=== PATIENT | male | born 1955 | race Caucasian/White ===

== ENCOUNTER 2019-07-05 11:42 | Emergency (ER) | payer MEDICARE, MEDICAID, SELFPAY ==
[2019-07-05] VITALS (7 sets, daily range): BP systolic 145–189; BP diastolic 60–93; PULSE 90–101; RESP 12–20; TEMP 36.5; O2SAT 89–96; BMI 39.9
--- NOTE | 2019-07-05 11:51 | DI.CT.S_ITS ---
PROCEDURE: CT HEAD/BRAIN WO CON INDICATIONS: multiple seizures TECHNIQUE: Noncontrast 4.5 mm thick angled axial sections acquired from the foramen magnum to the vertex, with coronal and sagittal reformats. For radiation dose reduction, the following was used: automated exposure control, adjustment of mA and/or kV according to patient size. COMPARISON: [facility], CT, CT HEAD WITHOUT CONTRAST, 08/29/2017, 11:48. FINDINGS: Image quality: Excellent. CSF spaces: Basal cisterns are patent. No extra-axial fluid collections. Ventricles are normal in size and shape. Brain: No midline shift. No intracranial masses or hemorrhage. Christina-white matter interface is normal. Skull and face: Calvarium and visualized facial bones are intact, without suspicious lesions. Sinuses: Visualized sinuses and mastoids are clear. IMPRESSION: Normal for age, source of seizure activity is not seen. No trauma from seizure is found. Dictated by: Guillermo Wright M.D. on 07/05/2019 at 12:29 Approved by: Guillermo Wright M.D. on 07/05/2019 at 12:31
--- NOTE | 2019-07-05 11:53 | DI.RAD.S_ITS ---
PROCEDURE: XR CHEST 1V INDICATIONS: hypoxic TECHNIQUE: One view of the chest was acquired. COMPARISON: [facility], CR, XR CHEST 1 VIEW, 07/03/2018, 9:48. FINDINGS: Surgical changes and devices: None. Lungs and pleura: Lungs are abnormal with a mild pulmonary edema pattern. No pleural effusions or pneumothorax. Mediastinum: Mediastinal contours appear normal. Heart size is at the upper limits of normal. Bones and chest wall: No suspicious bony lesions. Overlying soft tissues appear unremarkable. IMPRESSION: Mild generalized pulmonary edema pattern, heart size without change, at the upper limits of normal. Focal consolidative pneumonia is not seen. Dictated by: Guillermo Wright M.D. on 07/05/2019 at 12:21 Approved by: Guillermo Wright M.D. on 07/05/2019 at 12:22
[2019-07-05 12:02] LABS: Add Manual Diff / Slide Review NO; Basophils Absolute Auto 100 /uL (0-100); Basophils Percent Auto 0.6 % (0-2); Eosinophils Absolute Auto 100 /uL (0-450); Eosinophils Percent Auto 1.1 % (2-4); Hematocrit 52.4 % (41-53); Hemoglobin 17.6 g/dL (13.5-17.5); Lymphocytes Absolute Auto 1000 /uL (1100-4500); Lymphocytes Percent Auto 7.8 % (25-40); Mean Corpuscular HGB Conc 33.5 % (30-36); Mean Corpuscular Hemoglobin 28.9 PG (26-34); Mean Corpuscular Volume 86.2 fL (80-100); Monocytes Absolute Auto 900 /uL (0-900); Monocytes Percent Auto 7.1 % (3-14); Neutrophils Absolute Auto 10500 /uL (1500-7000); Neutrophils Percent Auto 83.4 % (50-75); Platelet Count 214 X10^3/uL (150-400); Red Blood Cell Count 6.08 X10^6/uL (4.5-5.9); Red Cell Distribution Width 15.6 % (11.6-14.8); White Blood Cell Count 12.5 X10^3/uL (4.5-11.0)
--- NOTE | 2019-07-05 12:10 | ED_ITS ---
HPI - Seizure <FEROZ Best - Last Filed: 07/05/19 18:48> General Chief Complaint: Seizure Stated Complaint: Seizures Time Seen by Provider: 07/05/19 11:46 Source: patient Mode of arrival: EMS History of Present Illness HPI Narrative: The patient is a 64-year-old male current smoker with history of seizures and cardiac disease who presents by EMS for chief complaint of a seizure. He states he has had approximately 3-4 seizures today. Does have a history of seizures most recently 4-5 months ago. He states he used to be on medications for seizures, not sure which 1 but no longer takes any medications. He does complain of a slight headache. He denies any neck pain or back pain. Per EMS he was incontinent after his seizure episode. He has declined transport for the 1st 2 seizures today that they recalled 4, but then he was postictal, so he received transport to the hospital. Upon arrival he is alert oriented x3. He does complain of a slight headache. 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 Related Data Allergies Allergy/AdvReac Type Severity Reaction Status Date / Time Penicillins Allergy Verified 07/05/19 11:51 Review of Systems <FEROZ Best - Last Filed: 07/05/19 18:48> Review of Systems Narrative: GENERAL: Denies chills, fatigue, malaise, fever, sweats. HEENT: Denies sinus pain, ear pain, sore throat, difficulty swallowing, dizziness. RESPIRATORY: Denies dyspnea, cough, wheezing, hemoptysis, sputum. CARDIOVASCULAR: Denies chest pain, palpitations, orthopnea, edema, GASTROINTESTINAL: Denies nausea, vomiting, abdominal pain, diarrhea, constipation, melena. : Denies dysuria, frequency, incontinence, hematuria, urinary retention. MUSCULOSKELETAL: denies weakness, joint pain, or bony pain SKIN: Denies rash, skin lesions, or other NEUROLOGIC: See HPI PSYCHIATRIC: No concerning psychosocial issues. 12 point review of systems is negative except for those stated above Patient History <FEROZ Best - Last Filed: 07/05/19 18:48> Medical History (Updated 07/05/19 @ 18:46 by FEROZ Bets) Cardiac disease (Acute) History of seizure (Acute) Leg wound, left (Acute) Social History Smoking Status: Current every day smoker Smoking Status: Current every day smoker tobacco type: cigarettes Substance Use Type: former substance user Exam <FEROZ Best - Last Filed: 07/05/19 18:48> Narrative Exam Narrative: GENERAL: Elderly unkempt male in no acute distress HEAD: Atraumatic. Normocephalic. No temporal or scalp tenderness. EYES: Pupils equal round and reactive. Extraocular motions intact. No scleral icterus. No injection or drainage. ENT: Nose without bleeding, purulent drainage or septal hematoma. Throat without erythema, tonsillar hypertrophy or exudate. Uvula midline. Airway patent. NECK: Trachea midline. No JVD or lymphadenopathy. Supple, nontender, no meningeal signs. CARDIOVASCULAR: Regular rate and rhythm RESPIRATORY: Clear to auscultation. Breath sounds equal bilaterally. No wheezes, rales, or rhonchi. GASTROINTESTINAL: Abdomen soft, non-tender, nondistended. No hepato- splenomegaly, or palpable masses. No guarding. EXTREMITIES: No clubbing, cyanosis, or edema. No joint tenderness, effusion, or edema noted. BACK: Nontender without deformity or crepitance. No flank tenderness. NEURO: AOx3. Following commands. States he is at [facility], year is 2019 full name. Slightly slurred speech. SKIN: Lower bilateral leg wounds noted with no no drainage or surrounding erythema Initial Vital Signs Initial Vital Signs: Vital Signs Temperature 97.7 F 07/05/19 11:46 Pulse Rate 92 H 07/05/19 11:46 Respiratory Rate 12 07/05/19 11:46 Blood Pressure 189/85 H 07/05/19 11:46 Pulse Oximetry 89 L 07/05/19 11:46 <Hector Honeycutt DO - Last Filed: 07/05/19 19:00> Initial Vital Signs Initial Vital Signs: Vital Signs Temperature 97.7 F 07/05/19 11:46 Pulse Rate 92 H 07/05/19 11:46 Respiratory Rate 12 07/05/19 11:46 Blood Pressure 189/85 H 07/05/19 11:46 Pulse Oximetry 89 L 07/05/19 11:46 Scores <FEROZ Best - Last Filed: 07/05/19 18:48> GCS Sanket coma scale eye opening: Spontaneous [place] coma scale verbal response: Orientated [place] coma scale motor response: Obey commands [place] coma scale total score: 15 Course <ENRRIQUE BestP-BC - Last Filed: 07/05/19 18:48> Orders Ordered: ED Orders 07/05/19 11:00 Complete Blood Count AUTO DIFF Stat 07/05/19 11:51 CT head/brain wo con Stat EKG-12 Lead Stat 07/05/19 11:53 XR chest 1V Stat 07/05/19 12:35 Comprehensive Metabolic Panel Stat Ethanol (ETOH) Stat Magnesium Stat Phosphorous Stat Prolactin Stat 07/05/19 14:22 UA dip and micro [Urinalysis and Microscopic] Stat 07/05/19 14:31 Urine Drug Screen, Rapid Stat Discontinued Medications Sodium Chloride (Normal Saline 0.9%) 1,000 mls @ 1,000 mls/hr IV BOLUS ONE Stop: 07/05/19 12:49 Last Infusion: 07/05/19 15:03 Dose: 0 mls/hr Documented by: Admin: 07/05/19 12:39 Dose: 1,000 mls/hr Documented by: MARIETTA Levetiracetam 1,000 mg/ Sodium (Chloride) 110 mls @ 440 mls/hr IV NOW ONE Stop: 07/05/19 12:29 Last Infusion: 07/05/19 13:20 Dose: 0 mls/hr Documented by: Admin: 07/05/19 12:54 Dose: 440 mls/hr Documented by: MARIETTA Lorazepam (Ativan) 2 mg IM NOW ONE Stop: 07/05/19 12:30 Last Admin: 07/05/19 12:41 Dose: 2 mg Documented by: MARIETTA Lorazepam (Ativan) 2 mg IV NOW ONE Stop: 07/05/19 12:42 Last Admin: 07/05/19 12:47 Dose: 2 mg Documented by: MARIETTA Reevaluation(s) Reevaluation #1: Ultrasound [employer] and at bedside for patient patient started having a grand mal seizure that lasted for 3 minutes. Myself and Dr. Honeycutt in to see the patient given IM Ativan, IV secured patient given further Ativan. NPA in place. He was moving all 4 extremities after his seizure. Patient was initially combative, pulling at IV lines so he was placed in soft restraints with [id number] assessment documented accordingly. Time: 12:18 Consultations Consultation #1: I spoke to Dr Muñiz from [facility] neurology, who states that the patient needs to be admitted for observation, he would not benefit from an EEG or necessarily being transferred to a hospital with Neurology at this point time. She states that she would not send the patient home given that he has had multiple seizures today, but he would not benefit from an EEG as those are better for subclinical seizure activity. Time: 13:55 Consultation #2: I spoke with Dr. smith our hospitalist who states that the patient would be better served at a location with neurology increase he deteriorates Time: 15:00 Consultation #3: I spoke with Eunice MATTHEWS who states that she is happy to accept the patient as hospitalist at [facility]. The patient remains sedated. He did give verbal consent to for me to speak with his father with Deric BENNETT at the bedside. He did not give consent for me to speak with his Yvonne, with Deric BENNETT at the bedside. I attempted to discuss impending patient transferred to [facility], but the patient was too sleepy and altered. Remains moving all 4 extremities. Time: 16:45 Vital Signs Vital signs: Vital Signs - 8 hr 07/05/19 11:46 07/05/19 12:45 07/05/19 13:00 Temperature 97.7 F Pulse Rate 92 H 101 H 96 H Respiratory Rate 12 15 19 Blood Pressure 189/85 H Blood Pressure [Left Arm] 174/93 H 160/86 H Pulse Oximetry 89 L 93 93 07/05/19 15:00 07/05/19 16:30 07/05/19 17:30 Temperature Pulse Rate 91 H 91 H 90 Respiratory Rate 16 20 17 Blood Pressure Blood Pressure [Left Arm] 147/60 H 145/84 H 156/77 H Pulse Oximetry 96 94 94 07/05/19 18:05 Temperature Pulse Rate 90 Respiratory Rate 17 Blood Pressure Blood Pressure [Left Arm] 155/92 H Pulse Oximetry 93 Restraint [id number] evaluation Date: 07/05/19 Time: 12:45 Mental Status Exam Patient Appearance: Unkempt Level of Consciousness: Combative and Disoriented Speech Pattern: Mumbled Mood Description: Angry Ability to Follow Directions: Poor Thought Process:: Other (Postictal) Physical Status Respirations: Normal respiratory rate Cardiac: Regular Rate Circulation: Moves all extremities Assessment of Situation Behavior necessitating restraint: Agitated (Also confused, pulling at lines,) Other risks: Agitated, confused, postictal, pulling at lines Restraint risks explained to patient: No (Patient is postictal confused, combative) Restraint risks explained to family: No (No family at bedside) <Hector Honeycutt DO - Last Filed: 07/05/19 19:00> Orders Ordered: ED Orders 07/05/19 11:00 Complete Blood Count AUTO DIFF Stat 07/05/19 11:51 CT head/brain wo con Stat EKG-12 Lead Stat 07/05/19 11:53 XR chest 1V Stat 07/05/19 12:35 Comprehensive Metabolic Panel Stat Ethanol (ETOH) Stat Magnesium Stat Phosphorous Stat Prolactin Stat 07/05/19 14:22 UA dip and micro [Urinalysis and Microscopic] Stat 07/05/19 14:31 Urine Drug Screen, Rapid Stat Discontinued Medications Sodium Chloride (Normal Saline 0.9%) 1,000 mls @ 1,000 mls/hr IV BOLUS ONE Stop: 07/05/19 12:49 Last Infusion: 07/05/19 15:03 Dose: 0 mls/hr Documented by: Admin: 07/05/19 12:39 Dose: 1,000 mls/hr Documented by: MARIETTA Levetiracetam 1,000 mg/ Sodium (Chloride) 110 mls @ 440 mls/hr IV NOW ONE Stop: 07/05/19 12:29 Last Infusion: 07/05/19 13:20 Dose: 0 mls/hr Documented by: Admin: 07/05/19 12:54 Dose: 440 mls/hr Documented by: MARIETTA Lorazepam (Ativan) 2 mg IM NOW ONE Stop: 07/05/19 12:30 Last Admin: 07/05/19 12:41 Dose: 2 mg Documented by: MARIETTA Lorazepam (Ativan) 2 mg IV NOW ONE Stop: 07/05/19 12:42 Last Admin: 07/05/19 12:47 Dose: 2 mg Documented by: MARIETTA Vital Signs Vital signs: Vital Signs - 8 hr 07/05/19 11:46 07/05/19 12:45 07/05/19 13:00 Temperature 97.7 F Pulse Rate 92 H 101 H 96 H Respiratory Rate 12 15 19 Blood Pressure 189/85 H Blood Pressure [Left Arm] 174/93 H 160/86 H Pulse Oximetry 89 L 93 93 07/05/19 15:00 07/05/19 16:30 07/05/19 17:30 Temperature Pulse Rate 91 H 91 H 90 Respiratory Rate 16 20 17 Blood Pressure Blood Pressure [Left Arm] 147/60 H 145/84 H 156/77 H Pulse Oximetry 96 94 94 07/05/19 18:05 Temperature Pulse Rate 90 Respiratory Rate 17 Blood Pressure Blood Pressure [Left Arm] 155/92 H Pulse Oximetry 93 MDM - Seizure <BECCA Best-BC - Last Filed: 07/05/19 18:48> Lab Data Result diagrams: 07/05/19 11:00 07/05/19 12:35 Labs: Lab Results 07/05/19 07/05/19 07/05/19 Range/Units 11:00 12:35 12:35 WBC 12.5 H (4.5-11.0) X10^3/uL RBC 6.08 H (4.5-5.9) X10^6/uL Hgb 17.6 H (13.5-17.5) g/dL Hct 52.4 (41-53) % MCV 86.2 (80-100) fL MCH 28.9 (26-34) PG MCHC 33.5 (30-36) % RDW 15.6 H (11.6-14.8) % Plt Count 214 (150-400) X10^3/uL Neut % (Auto) 83.4 H (50-75) % Lymph % (Auto) 7.8 L (25-40) % [place] % (Auto) 7.1 (3-14) % Eos % (Auto) 1.1 L (2-4) % Baso % (Auto) 0.6 (0-2) % Neut # (Auto) 20283 H (3411-4896) /uL Lymph # (Auto) 1000 L (5897-5762) /uL [place] # (Auto) 900 (0-900) /uL Eos # (Auto) 100 (0-450) /uL Baso # (Auto) 100 (0-100) /uL Sodium 140 (137-145) mmol/L Potassium 5.0 (3.4-5.1) mmol/L Chloride 103 (98-107) mmol/L Carbon Dioxide 23 (22-32) mmol/L BUN 21 H (9-20) mg/dL Creatinine 0.98 (0.66-1.25) mg/dL Estimated GFR > 60.0 (>60) mL/min BUN/Creatinine Ratio 21.4 (6-22) Glucose 136 H (80-110) mg/dL Calcium 9.6 (8.4-10.2) mg/dL Phosphorus 4.4 H (2.3-3.7) mg/dL Magnesium 2.3 (1.6-2.3) mg/dL Total Bilirubin 0.6 (0.2-1.3) mg/dL AST 46 (17-59) IU/L ALT 31 (<50) IU/L Alkaline Phosphatase 102 (38-126) U/L Total Protein 8.8 H (6.3-8.2) g/dL Albumin 4.5 (3.5-5.0) g/dL Globulin 4.3 H (1.7-4.1) g/dL Albumin/Globulin Ratio 1.0 (1.0-2.8) Prolactin 10.1 (3.7-17.9) ng/mL U Opiates 300ng/mL cut (Negative) Ur Oxycodone Screen (Negative) Urine Methadone Screen (Negative) Ur Barbiturates Screen (Negative) U Tricyclic Antidepress (Negative) Ur Phencyclidine Scrn (Negative) Ur Amphetamines Screen (Negative) U Methamphetamines Scrn (Negative) Ur MDMA Scrn (Ecstasy) (Negative) U Benzodiazepines Scrn (Negative) Urine Cocaine Screen (Negative) U Marijuana (THC) Screen (Negative) Ethyl Alcohol < 10 ( - 10) mg/dL 07/05/19 Range/Units 14:31 WBC (4.5-11.0) X10^3/uL RBC (4.5-5.9) X10^6/uL Hgb (13.5-17.5) g/dL Hct (41-53) % MCV (80-100) fL MCH (26-34) PG MCHC (30-36) % RDW (11.6-14.8) % Plt Count (150-400) X10^3/uL Neut % (Auto) (50-75) % Lymph % (Auto) (25-40) % [place] % (Auto) (3-14) % Eos % (Auto) (2-4) % Baso % (Auto) (0-2) % Neut # (Auto) (1193-8442) /uL Lymph # (Auto) (6342-6024) /uL [place] # (Auto) (0-900) /uL Eos # (Auto) (0-450) /uL Baso # (Auto) (0-100) /uL Sodium (137-145) mmol/L Potassium (3.4-5.1) mmol/L Chloride (98-107) mmol/L Carbon Dioxide (22-32) mmol/L BUN (9-20) mg/dL Creatinine (0.66-1.25) mg/dL Estimated GFR (>60) mL/min BUN/Creatinine Ratio (6-22) Glucose (80-110) mg/dL Calcium (8.4-10.2) mg/dL Phosphorus (2.3-3.7) mg/dL Magnesium (1.6-2.3) mg/dL Total Bilirubin (0.2-1.3) mg/dL AST (17-59) IU/L ALT (<50) IU/L Alkaline Phosphatase (38-126) U/L Total Protein (6.3-8.2) g/dL Albumin (3.5-5.0) g/dL Globulin (1.7-4.1) g/dL Albumin/Globulin Ratio (1.0-2.8) Prolactin (3.7-17.9) ng/mL U Opiates 300ng/mL cut Negative (Negative) Ur Oxycodone Screen Negative (Negative) Urine Methadone Screen Negative (Negative) Ur Barbiturates Screen Negative (Negative) U Tricyclic Antidepress Negative (Negative) Ur Phencyclidine Scrn Negative (Negative) Ur Amphetamines Screen Negative (Negative) U Methamphetamines Scrn Positive H (Negative) Ur MDMA Scrn (Ecstasy) Negative (Negative) U Benzodiazepines Scrn Negative (Negative) Urine Cocaine Screen Negative (Negative) U Marijuana (THC) Screen Negative (Negative) Ethyl Alcohol ( - 10) mg/dL Imaging Data CT scan - head: Radiologist's Impression: [address] [place] [id number] Scan Report Signed Patient: Manuel Mcnamara#: [id number] : [id number] Age/Sex: 64 / MDate of Service: 07/05/19 Loc: ED Accession Number: [id number] Procedure: CT head/brain wo con Ordering Provider: Jaelyn Glover PROCEDURE: CT HEAD/BRAIN WO CON INDICATIONS: multiple seizures TECHNIQUE: Noncontrast 4.5 mm thick angled axial sections acquired from the foramen magnum to the vertex, with coronal and sagittal reformats. For radiation dose reduction, the following was used: automated exposure control, adjustment of mA and/or kV according to patient size. COMPARISON: [facility], CT, CT HEAD WITHOUT CONTRAST, 08/29/2017, 11:48. FINDINGS: Image quality: Excellent. CSF spaces: Basal cisterns are patent. No extra-axial fluid collections. Ventricles are normal in size and shape. Brain: No midline shift. No intracranial masses or hemorrhage. Christina-white matter interface is normal. Skull and face: Calvarium and visualized facial bones are intact, without suspicious lesions. Sinuses: Visualized sinuses and mastoids are clear. IMPRESSION: Normal for age, source of seizure activity is not seen. No trauma from seizure is found. Dictated by: Guillermo Wright M.D. on 07/05/2019 at 12:29 Approved by: Guillermo Wright M.D. on 07/05/2019 at 12:31 Chest x-ray: Radiologist's Impression: [address] [place] [id number] XRay Report Signed Patient: Manuel McnamaraMR#: [id number] : [id number] Age/Sex: 64 / MDate of Service: 07/05/19 Loc: ED Accession Number: [id number] Procedure: XR chest 1V Ordering Provider: Jaelyn Glover PROCEDURE: XR CHEST 1V INDICATIONS: hypoxic TECHNIQUE: One view of the chest was acquired. COMPARISON: [facility], CR, XR CHEST 1 VIEW, 07/03/2018, 9:48. FINDINGS: Surgical changes and devices: None. Lungs and pleura: Lungs are abnormal with a mild pulmonary edema pattern. No pleural effusions or pneumothorax. Mediastinum: Mediastinal contours appear normal. Heart size is at the upper limits of normal. Bones and chest wall: No suspicious bony lesions. Overlying soft tissues appear unremarkable. IMPRESSION: Mild generalized pulmonary edema pattern, heart size without change, at the upper limits of normal. Focal consolidative pneumonia is not seen. Dictated by: Guillermo Wright M.D. on 07/05/2019 at 12:21 Approved by: Guillermo Wright M.D. on 07/05/2019 at 12:22 ECG Data Attestation: I personally reviewed and interpreted this ECG as follows: Interpretation: Sinus rhythm. Ventricular rate 91. P.r. interval 181. QRS 117. MDM Narrative Medical decision making narrative: The patient is a 64-year-old male who presents with a chief complaint of multiple seizures at home this morning. He was given a g of Keppra after having another seizure in the emergency department. I spoke with Dr. Muñiz, from [facility] who recommends that the patient be admitted for observation and not be discharged home. I spoke with hospitalist Dr. smith who states that the patient would be better ser miah at a location with Neurology. I spoke with BYRON Sparks hospitalist at [facility] who kindly accepted the patient for transfer. I spoke with patient's after patient gave me consent regarding the transfer and she states she is okay with it. The patient remained postictal and sedated due to 4 mg of Ativan throughout stay in the emergency department. He was hemodynamically stable and did not have any recurrent seizures. Patient was transferred to EMS approximately 18 20. <Hector Honeycutt, DO - Last Filed: 07/05/19 19:00> Lab Data Labs: Lab Results 07/05/19 07/05/19 07/05/19 Range/Units 11:00 12:35 12:35 WBC 12.5 H (4.5-11.0) X10^3/uL RBC 6.08 H (4.5-5.9) X10^6/uL Hgb 17.6 H (13.5-17.5) g/dL Hct 52.4 (41-53) % MCV 86.2 (80-100) fL MCH 28.9 (26-34) PG MCHC 33.5 (30-36) % RDW 15.6 H (11.6-14.8) % Plt Count 214 (150-400) X10^3/uL Neut % (Auto) 83.4 H (50-75) % Lymph % (Auto) 7.8 L (25-40) % [place] % (Auto) 7.1 (3-14) % Eos % (Auto) 1.1 L (2-4) % Baso % (Auto) 0.6 (0-2) % Neut # (Auto) 43570 H (5036-6330) /uL Lymph # (Auto) 1000 L (4605-6150) /uL [place] # (Auto) 900 (0-900) /uL Eos # (Auto) 100 (0-450) /uL Baso # (Auto) 100 (0-100) /uL Sodium 140 (137-145) mmol/L Potassium 5.0 (3.4-5.1) mmol/L Chloride 103 (98-107) mmol/L Carbon Dioxide 23 (22-32) mmol/L BUN 21 H (9-20) mg/dL Creatinine 0.98 (0.66-1.25) mg/dL Estimated GFR > 60.0 (>60) mL/min BUN/Creatinine Ratio 21.4 (6-22) Glucose 136 H (80-110) mg/dL Calcium 9.6 (8.4-10.2) mg/dL Phosphorus 4.4 H (2.3-3.7) mg/dL Magnesium 2.3 (1.6-2.3) mg/dL Total Bilirubin 0.6 (0.2-1.3) mg/dL AST 46 (17-59) IU/L ALT 31 (<50) IU/L Alkaline Phosphatase 102 (38-126) U/L Total Protein 8.8 H (6.3-8.2) g/dL Albumin 4.5 (3.5-5.0) g/dL Globulin 4.3 H (1.7-4.1) g/dL Albumin/Globulin Ratio 1.0 (1.0-2.8) Prolactin 10.1 (3.7-17.9) ng/mL U Opiates 300ng/mL cut (Negative) Ur Oxycodone Screen (Negative) Urine Methadone Screen (Negative) Ur Barbiturates Screen (Negative) U Tricyclic Antidepress (Negative) Ur Phencyclidine Scrn (Negative) Ur Amphetamines Screen (Negative) U Methamphetamines Scrn (Negative) Ur MDMA Scrn (Ecstasy) (Negative) U Benzodiazepines Scrn (Negative) Urine Cocaine Screen (Negative) U Marijuana (THC) Screen (Negative) Ethyl Alcohol < 10 ( - 10) mg/dL 07/05/19 Range/Units 14:31 WBC (4.5-11.0) X10^3/uL RBC (4.5-5.9) X10^6/uL Hgb (13.5-17.5) g/dL Hct (41-53) % MCV (80-100) fL MCH (26-34) PG MCHC (30-36) % RDW (11.6-14.8) % Plt Count (150-400) X10^3/uL Neut % (Auto) (50-75) % Lymph % (Auto) (25-40) % [place] % (Auto) (3-14) % Eos % (Auto) (2-4) % Baso % (Auto) (0-2) % Neut # (Auto) (5085-8224) /uL Lymph # (Auto) (4012-6216) /uL [place] # (Auto) (0-900) /uL Eos # (Auto) (0-450) /uL Baso # (Auto) (0-100) /uL Sodium (137-145) mmol/L Potassium (3.4-5.1) mmol/L Chloride (98-107) mmol/L Carbon Dioxide (22-32) mmol/L BUN (9-20) mg/dL Creatinine (0.66-1.25) mg/dL Estimated GFR (>60) mL/min BUN/Creatinine Ratio (6-22) Glucose (80-110) mg/dL Calcium (8.4-10.2) mg/dL Phosphorus (2.3-3.7) mg/dL Magnesium (1.6-2.3) mg/dL Total Bilirubin (0.2-1.3) mg/dL AST (17-59) IU/L ALT (<50) IU/L Alkaline Phosphatase (38-126) U/L Total Protein (6.3-8.2) g/dL Albumin (3.5-5.0) g/dL Globulin (1.7-4.1) g/dL Albumin/Globulin Ratio (1.0-2.8) Prolactin (3.7-17.9) ng/mL U Opiates 300ng/mL cut Negative (Negative) Ur Oxycodone Screen Negative (Negative) Urine Methadone Screen Negative (Negative) Ur Barbiturates Screen Negative (Negative) U Tricyclic Antidepress Negative (Negative) Ur Phencyclidine Scrn Negative (Negative) Ur Amphetamines Screen Negative (Negative) U Methamphetamines Scrn Positive H (Negative) Ur MDMA Scrn (Ecstasy) Negative (Negative) U Benzodiazepines Scrn Negative (Negative) Urine Cocaine Screen Negative (Negative) U Marijuana (THC) Screen Negative (Negative) Ethyl Alcohol ( - 10) mg/dL Discharge Plan Departure Patient Disposition: [facility] Clinical Impression: Seizure
[2019-07-05] MEDS: SODIUM CHLORIDE 0.9% 1,000 ML 1000 ML IV (12:39)
[2019-07-05] MEDS: LORazepam 2 MG/ML INJ IM (12:41)
[2019-07-05] MEDS: LORazepam 2 MG/ML INJ IV (12:47)
[2019-07-05] MEDS: levETIRAcetam 1,000 MG in SODIUM CHLORIDE 0.9% 100 ML 440 ML IV (12:54)
--- NOTE | 2019-07-05 13:08 | PC.NURSE ---
1218 patient began having grand mal seizure. Patient seizure lasted approx 3 min. Patient turned onto side, NPA placed by provider. NRB mask in place. Patient received IM ativan during seziure per verbal order by Provider. Patient remained, agitated after seizure by NPA. Removed patient maintaining airway. Remains on 4lNC. End tidal C02 placed 45 with good waveform. US guided IV placed by Shelby LUTZ from . Bloods collected at time of placement. Flushes with no resistance.
[2019-07-05 13:09] LABS: Alanine Aminotransferase 31 IU/L (<50); Albumin 4.5 g/dL (3.5-5.0); Alkaline Phosphatase 102 U/L (38-126); Aspartate Aminotransferase 46 IU/L (17-59); BUN Creatinine Ratio 21.4 (6-22); Bilirubin Total 0.6 mg/dL (0.2-1.3); Blood Urea Nitrogen 21 mg/dL (9-20); Calcium 9.6 mg/dL (8.4-10.2); Carbon Dioxide 23 mmol/L (22-32); Chloride 103 mmol/L (98-107); Estimated Glomerular Filt Rate > 60.0 mL/min (>60); Ethanol (ETOH) < 10 mg/dL; Globulin 4.3 g/dL (1.7-4.1); Glucose 136 mg/dL (80-110); HEMOLYSIS 39 (0-50); Sodium 140 mmol/L (137-145); Total Protein 8.8 g/dL (6.3-8.2)
[2019-07-05 13:10] LABS: Magnesium 2.3 mg/dL (1.6-2.3); Phosphorous 4.4 mg/dL (2.3-3.7)
[2019-07-05 13:26] LABS: Prolactin 10.1 ng/mL (3.7-17.9)
[2019-07-05 14:52] LABS: UR Morphine/Opiate cutoff 300 Negative (Negative); Ur Creatinine Normal (Normal); Ur Specific Gravity Normal (Normal); Urine Amphetamines Negative (Negative); Urine Barbiturates Negative (Negative); Urine Benzodiazepines Negative (Negative); Urine Cocaine Negative (Negative); Urine MDMA Negative (Negative); Urine Methadone Negative (Negative); Urine Oxycodone Negative (Negative); Urine Phencyclidine Negative (Negative); Urine Tetrahydrocannabinol Negative (Negative); Urine Tricyclic Antidepressant Negative (Negative); Urine pH Normal (Normal)
[2019-07-05 14:55] LABS: Urine Methamphetamines Positive (Negative)
--- NOTE | 2019-07-05 15:25 | PC.NURSE ---
During straight cath patient responded to painful stimulation. Did not speak with staff just groaned.
--- NOTE | 2019-07-05 15:26 | PC.NURSE ---
Patient responsive to painful stimulation, will moan or grunt. Does not follow commands at this time.
--- NOTE | 2019-07-05 18:24 | PC.NURSE ---
Report called to Stella LUTZ at [facility].
== END 2019-07-05 18:12 | disposition short-term general hospital (02) ==
PROVIDERS: Emergency Provider Nurse Practitioner Family
DX: R56.9 Unspecified convulsions (principal); R09.02 Hypoxemia
CPT/HCPCS: 36415; 70450; 71045; 80053; 80305; 80320; 83735; 84100; 84146; 85025; 93005; 96365; 96372; 96375; 99285; J1953; J2060